=== PATIENT | female | born 1950 | race Caucasian/White ===

== ENCOUNTER 2023-08-15 11:05 | Emergency (ER) | payer SELFPAY ==
[2023-08-15] VITALS (13 sets, daily range): BP systolic 117–180; BP diastolic 81–128; PULSE 0–172; RESP 0–30; TEMP 36.1; O2SAT 99–100
--- NOTE | ~2023-08-15 | XR_ITS ---
Portable chest x-ray Comparison: 03/17/1999 Clinical History: Tube placement Findings: Endotracheal tube in satisfactory position. Lungs are clear. Cardiomediastinal silhouette is stable. Bones and soft tissues are unremarkable. Impression: ET tube in satisfactory position. Clear lungs. Reviewed, dictated and finalized at location . Impression: ET tube in satisfactory position. Clear lungs.
--- NOTE | 2023-08-15 11:15 | ECG_ITS ---
Test Date: 2023-08-15 11:24:07 Measurements Intervals [place] Rate: 165 P: 0 IN: 0 QRS: -32 QRSD: 67 T: 138 QT: 227 QTc: 377 Interpretive Statements ATRIAL FIBRILLATION WITH RAPID VENTRICULAR RESPONSE WITH ABERRANT CONDUCTION OR VENTRICULAR PREMATURE COMPLEXES LEFT AXIS DEVIATION [QRS AXIS < -30] NONSPECIFIC ST & T-WAVE ABNORMALITY No previous ECG available for comparison Electronically Signed On 08-16-2023 10:39:28 CDT by Gino Love M.D.
[2023-08-15 11:38] LABS: Hematocrit 35.3 % (35.0-42.0); Hemoglobin 11.7 g/dL (11.7-13.8); Mean Corpuscular HGB Conc 33.1 g/dL (32-36); Mean Corpuscular Hemoglobin 30.2 pg (27.0-31.0); Mean Corpuscular Volume 91.2 fL (78.0-102.0); Mean Platelet Volume 12.1 fl (9.2-11.8); Platelet Count Result 213 K/mm3 (150-420); Red Blood Count 3.87 M/mm3 (4.20-5.40); Red Cell Distribution Width 15.9 % (11.6-14.4); White Blood Count 14.2 K/mm3 (4.8-10.8)
[2023-08-15 11:46] LABS: Partial Thromboplastin Time 30.2 Sec (23.9-30.70); Prothrombin Time 11.4 Seconds (9.50-12.1)
[2023-08-15 11:48] LABS: Band Neutrophils Percent 1 % (0-6); Basophils Percent Manual 0 % (0-1); Eosinophils Percent Manual 0 % (1-6); Lymphocytes Percent Manual 24 % (18-44); Monocytes Absolute Manual 0.99 K/mm3 (0.1-0.90); Monocytes Percent Manual 7 % (3-9); Neutrophils Absolute Manual 9.79 K/mm3 (1.7-7.2); Neutrophils Percent Manual 68 % (46-73); Platelet Estimate Adequate (Adequate); Total Cells Counted 100
[2023-08-15 11:50] LABS: Alanine Aminotransferase 51 U/L (14-59); Albumin Level 2.3 g/dL (3.4-5.0); Alkaline Phosphatase 84 U/L (46-116); Anion Gap 15 mmol/L (4-12); Aspartate Amino Transferase 123 U/L (15-37); Bilirubin,Total 2.2 mg/dL (0.00-1.00); Blood Urea Nitrogen 8 mg/dL (7-18); Calcium 8.6 mg/dL (8.5-10.1); Carbon Dioxide 26 mmol/L (21-32); Chloride 98 mmol/L (98-108); Estimated Glomerular Filt Rate 24; Glucose 155 mg/dL (70-99); Osmolality Calculated 289 mOsm/kg (285-295); Sodium 139 mmol/L (136-145); Total Protein 6.1 g/dL (6.4-8.2); Troponin I 17.7 ng/L (0.00-60.4)
[2023-08-15 11:51] LABS: Potassium 2.4 mmol/L (3.5-5.1)
[2023-08-15 11:55] LABS: Appearance Urine Cloudy (Clear); Bilirubin Urine Negative (Negative); Blood Urine 3+ (Negative); Color Urine Yellow (Yellow); Glucose Urine UA Negative (Negative); Ketones Urine Negative (Negative); Leukocyte Esterase Ur Negative LEU/UL (Negative); Nitrate Urine Negative (Negative); Protein Urine 3+ (Negative); Specific Grav Ur 1.025 (1.010-1.020)
[2023-08-15 12:03] LABS: Add Urine Microscopic? YES
[2023-08-15 12:04] LABS: Bacteria Urine 2+ /hpf; RBC Urine >75 /hpf (0-2); Squamous Epithelial Cell Urine Many /hpf (Few); WBC Urine None seen /hpf (0-3)
[2023-08-15] MEDS: TETANUS,DIPHTHERIA,AC PERTUSSIS ADULT 0.5 ML (ADACEL) IM (12:13)
[2023-08-15] MEDS: PROPOFOL IV EMULSION 100 ML 2 MG IV CONT (12:20)
--- NOTE | 2023-08-15 12:23 | ED.CPR ---
HPI - CPR General Chief Complaint: Cardiac Arrest/CPR Stated Complaint: fell history of chief complaint: inform it is nursing staff and patient's sister Demetria. History of chief complaint: Rapid response called regarding patient collapse in administrative hallway. ER staff immediately responded to patient where she was found face down with blood about her head, it looked as if she collapsed while bending over to get a drink of water at the drinking fountain. Pulse was checked and none was felt, CPR was instituted. Patient was maintained in cervical immobilization/ alignment and rolled in alignment onto a backboard, placed on a gurney and brought to the ER trauma room for further care. CPR continued intermittently, at times patient felt as if she had a pulse however once phototypesetting equipment monitor was on it did appear that she had ventricular fibrillation. Patient was immediately defibrillated with cardiac response showing a organized rhythm although she was bradycardic so atropine and epinephrine were then given. On arrival to the trauma room patient was placed in a rigid cervical collar. After organized rhythm developed patient did have palpable pulse and blood pressure was felt. patient was then intubated with 7.0 endotracheal tube via glide scope, tubes seen going between vocal cords. Tube inserted to 24 marker at the corner of the mouth. Bilateral breath sounds were heard and capnography was at about 40, CO2 paper does show yellow change. Chest x-ray also completed and showed good placement of the endotracheal tube. on physical exam patient does appear to have laceration about the left orbit, Tetanus booster ordered. situation discussed with sister Demetria and she elects to use [facility] as we have recommended for trauma code care. case was discussed with Dr. Foreman at the trauma center at [facility], he accepts the patient there for further care. Patient transported as expeditiously as possible per helicopter. Demetria was informed of risk- benefit of transportation and need for higher level of care, she voices understanding and acceptance. At transport personal request propofol was ordered. Sister Demetria does confirm the patient has no DNR Paperwork completed and felt it appropriate for us to do everything possible to keep the patient alive. patient's pupils were noted to be reactive immediately after intubation and @ time of transfer. history obtained from sister Stormy Augustin tells me that the patient was having some dizziness on Tuesday and some chest pain yesterday. past medical history: Hypertension, renal monitoring, no history of heart disease past surgical history: Gallbladder, family history: Positive for heart disease and cancer, negative for diabetes social history: nonsmoker/ no alcohol or street drugs. Source: family History of Present Illness HPI narrative: History of present illness: As noted in the narrative for MSE. Place: other ( Administrative hallway here in the hospital.) Related Data Allergies Allergy/AdvReac Type Severity Reaction Status Date / Time propoxyphene Allergy Severe N/V Unverified 01/26/14 16:12 Review of Systems Review of Systems: Review of systems unobtainable secondary to patient's current medical condition Exam Narrative: Physical exam: General- nonresponsive, no spontaneous respirations or pulse eye: pupils reactive after initial treatment. HENT: Has laceration to the left side of face/lateral to the orbit. neck: In cervical collar lungs: after intubation has bilateral breath sounds heard, adequate tube placement confirmed by various means. heart: The 2 rhythm strip shows ventricular fibrillation, organized rhythm obtained after defibrillation abdomen: Soft, nontender, nondistended, normal bowel sounds, no masses muscle skeletal: no swelling or obvious deformity noted. skin: Skin is warm/ dry Neurologic: Nonrespon
--- NOTE | 2023-08-15 15:24 | PC.NURSE ---
1117 - yarelis-pharynx suctioned of thick mucus prior to intubation. 1119 - bilat breath sounds auscultated after intubation with resp via ambu bag at 100% O2. 1120 - lab drawing samples. 1124 - EKG completed. erp reviewing same. 1127 - resp vent applied to pt with settings: tidal volume 500, rate 18, peep 5, 100% oxygen. 1128 - 16fr young cath inserted easily. scant cloudy yellow urine returned. sample collected. 1129 - [facility] called for transfer, Air evac called out. PEARLA at 5mm bilat 1133 - left brow lac cleaned and covered with gauze dressing 1135 - family at bedside. belongings recorded. 1150 - air evac arrived to bedside.
== END 2023-08-15 12:25 | disposition short-term general hospital (02) ==
PROVIDERS: Emergency Provider Emergency Medicine
DX: I46.9 Cardiac arrest, cause unspecified (principal); I10 Essential (primary) hypertension; Z23 Encounter for immunization
CPT/HCPCS: 31500; 36415; 80053; 81001; 83735; 84484; 85025; 85610; 85730; 90471; 90715; 92950; 93005; 96374; 99291; J0171; J0461; J2704; J7030; L0150

== ENCOUNTER 2023-12-21 09:05 | Outpatient (CLI) | payer MEDICARE, SELFPAY ==
--- NOTE | ~2023-12-21 | XR_ITS ---
MODIFIED ESOPHAGRAM HISTORY: Unspecified foreign body in respiratory tract. TECHNIQUE: Modified barium esophagram was performed on 12/21/2023. I administered fluoroscopy and per formed the exam with speech pathologist. Patient was seated for lateral fluoroscopic imaging for ing estion of thin liquids, pudding, solids and quantified amounts, followed by thin liquids in uncontrol led amounts. This was recorded on tape. A single fluoroscopic spot image was also recorded. The DAP f or this procedure was 1.2 Gycm2. The amount of fluoroscopy time used during this procedure was 2.0 mi nutes. FINDINGS: Oral stage: Adequate function. Pharyngeal stage: Reduced laryngeal elevation and tongue base retraction. There is vallecular and pir iform sinus residue. There is laryngeal penetration without aspiration. There are prominent anterior endplate osteophytes in the upper cervical spine which impresses upon the posterior wall of the phary nx. Cervical/esophageal stage: Adequate function. IMPRESSION: Pharyngeal dysphagia with laryngeal penetration without aspiration. Please correlate wit h speech pathologist findings and specific feeding recommendations. Reviewed, dictated and finalized at location A. IMPRESSION: Pharyngeal dysphagia with laryngeal penetration without aspiration. Please correlate with speech pathologist findings and specific feeding recomm endations.
--- NOTE | 2023-12-21 10:24 | REHSTMBS ---
Assessment and note entered by Reny Chapa INTERNAL SECURITY MANAGER Modified Barium Swallow Evaluation Feeding Type Recommended Non-Oral ST Clinical Summary MODIFIED BARIUM SWALLOW STUDY This patient was seen for a Modified Barium Swallow study at the request of her physician. She reports she had a heart attack in August of 2023; sister, who was present after the evaluation, reported that patient required ventilation and twice during this early period, perhaps in the first 24 hours after her heart attack. Patient reported when she woke up, she had a feeding tube in her stomach. She expressed frustration and not being able to eat or drink anything since that time. Patient reports she has been receiving home health services through [facility]; the speech pathologist comes to the house 1x weekly and that she completes swallowing strengthening exercises several days of the week. Patient was viewed in the lateral position to the level of C5/C6. She was presented only with approximately 1/2 teaspoon pudding mixed with semi -solid contrast medium, 1/2 teaspoon thin liquid contrast medium, and 1/2 teaspoon of moderately thick liquid contrast medium. On the first presentation of pudding material, patient initially swallowed, filling the valleculae and pyriform sinuses with residue, then attempted a second swallow which seemed to squeeze a large amount of residue into the top of the airway, causing a cough which cleared the penetrated material. Significant residue remained after that swallow. Given the thin liquid and the moderately thick liquid, patient penetrated during the first swallow, both causing a cough which cleared most of the penetrated material however there was at least trace residue after the completion of each swallow. Results indicate this patient remains at risk for aspiration on all consistencies as she was unable to prevent penetration on any consistency. Although she coughs and clears most of the penetrated material, residue remained in the airway at the completion of the swallow. This residue could be multiplied during a meal which would greatly increase her risk of aspiration/
== END 2023-12-21 09:06 | disposition home or self-care (01) ==
PROVIDERS: PCP Internal Medicine; Visit Provider Internal Medicine Gastroenterology
DX: R13.13 Dysphagia, pharyngeal phase (principal); T17.908A Unspecified foreign body in respiratory tract, part unspecified causing other injury, initial encounter
CPT/HCPCS: 92611